=== PATIENT | female | born 1995 | race Caucasian/White ===

== ENCOUNTER 2017-09-08 13:44 | Emergency (ER) | payer OTHER ==
[2017-09-08 13:55] VITALS: BP 131/74; PULSE 100; TEMP 98.6; BMI 19.5
--- NOTE | 2017-09-08 14:28 | PDOC ---
History of Present Illness - General Chief Complaint: Vaginal Sxs Stated Complaint: PRIVATE AREA CHECK Time Seen by Provider: 09/08/17 14:03 History Source: Patient - History of Present Illness Timing/Duration: reports: constant (2 days) Abdominal Pain Onset Location: denies: generalized abdomen Past History - Past Medical History Allergies/Adverse Reactions: Allergies Allergy/AdvReac Type Severity Reaction Status Date / Time No Known Allergies Allergy Verified 09/08/17 13:55 Home Medications: Ambulatory Orders No Home Medications 0 dose .ROUTE UTDICT 02/26/13 Metronidazole 500 mg PO BID #14 tablet 09/08/17 CVA: No COPD: No - Immunization History Immunization Up to Date: Yes - Suicide/Smoking/Psychosocial Hx Smoking Status: No Smoking History: Never smoked Number of Cigarettes Smoked Daily: 0 Hx Alcohol Use: No Drug/Substance Use Hx: No Substance Use Type: Marijuana Review of Systems - Review of Systems Constitutional: No: Chills, Fever ABD/GI: No: Nausea, Vomiting, Abdominal cramping : Yes: Discharge. No: Burning, Dysuria, Flank Pain, Hematuria *Physical Exam - Vital Signs Last Vital Signs Temp Pulse Resp BP Pulse Ox 98.6 F 100 H 20 131/74 100 09/08/17 13:52 09/08/17 13:52 09/08/17 13:52 09/08/17 13:52 09/08/17 13:52 - Physical Exam General Appearance: Yes: Appropriately Dressed. No: Apparent Distress HEENT: positive: Normal Voice Neck: positive: Supple Respiratory/Chest: negative: Respiratory Distress Female Pelvic Exam: positive: normal external exam, cervical os closed, discharge (minimal milky white discharge w/ possible foul odor). negative: CMT , adnexal tenderness, vaginal bleeding Gastrointestinal/Abdominal: negative: Tender, Soft Medical Decision Making - Medical Decision Making 09/08/17 14:24 21-year-old female, no significant history, not currently on control, here with foul smelling vaginal discharge 2 days. No current abdominal pain, vaginal itching, nausea, vomiting, fever, chills, or dysuria. No history of STDs. Is sexually active with boyfriend only with no condom use. Patient well- appearing and stable with minimal white milky discharge with possible foul odor on exam, no evidence of PID. Will treat with flagyl for possible BV. Gen.culture and STD culture sent. negative with unremarkable UA in ED today *DC/Admit/Observation/Transfer Diagnosis at time of Disposition: Vaginal discharge - Discharge Dispostion Disposition: HOME Condition at time of disposition: Good - Prescriptions Prescriptions: Metronidazole 500 mg PO BID #14 tablet - Referrals - Patient Instructions Printed Discharge Instructions: DI for Bacterial Vaginosis Additional Instructions: Take Flagyl as directed. Please refrain from alcohol use while on medication and up to 24 hours after last dose to prevent serious complication. Call ER in 2-3 days for test results at [phone] Follow-up with [facility] to discuss contraception - Post Discharge Activity
[2017-09-08 14:43] LABS: HCG,QUALITATIVE URINE NEGATIVE
[2017-09-08 14:45] LABS: URINE APPEARANCE CLEAR; URINE BILIRUBIN NEGATIVE (NEGATIVE); URINE BLOOD NEGATIVE (NEGATIVE); URINE COLOR LTYELLOW; URINE GLUCOSE (UA) NEGATIVE (NEGATIVE); URINE KETONE NEGATIVE (NEGATIVE); URINE LEUK ESTERASE NEGATIVE (NEGATIVE); URINE NITRITE NEGATIVE (NEGATIVE); URINE PROTEIN NEGATIVE (NEGATIVE); URINE UROBILINOGEN NEGATIVE mg/dL (0.2-1.0)
== END 2017-09-08 14:56 | disposition home or self-care (01) ==
LOC: JERFT 13:44
DX: N89.8 Other specified noninflammatory disorders of vagina (principal)
CPT/HCPCS: 36415; 81003; 84703; 87070; 87205; 87491; 87591; 99281-25